=== PATIENT | male | born 1945 | race Caucasian/White ===

== ENCOUNTER → 2016-11-16 | Outpatient (CLI) | payer OTHER, MEDICARE ==
--- NOTE | 2016-11-16 18:34 | US ---
Venous Duplex Doppler Study of the Right Lower Extremity Clinical Indications: 71-year-old male with right leg swelling and pain over the posterior calf area . Rule out DVT. The right greater saphenous vein is surgically absent. Technique: A high-frequency transducer was used for imaging and Doppler study of the deep veins of th e right leg from the upper calf to the groin. Pulsed Doppler and color Doppler were utilized, along with various maneuvers, to assess flow in the deep veins. Cursory evaluation of the left common femor al vein was obtained for comparison purposes, and is normal. Comparison Study: Right lower extremity venous Doppler ultrasound, dated June 04, 2016. Findings: The deep veins of the right groin, thigh, knee, and upper calf are well-displayed, and are normally compressible. Doppler flow patterns are unremarkable. There is no evidence of deep venous thrombosis. The greater saphenous vein has been previously harvested. The lesser saphenous vein is c ompressible. The popliteal fossa is unremarkable. There is subcutaneous edema along the posterior lang f and ankle area. Impression: There is no sonographic evidence of deep or superficial vein thrombosis in the right leg. As requested, results were conveyed to Dr. Rodriguez, covering for Estephania Donnelly PA-C. A test result has been communicated to a licensed care provider and documented in [facility] 6:29:41 PM , 11/16/2016, [facility] Message ID [id number].
== END ==
LOC: FIMAGING 16:14
PROVIDERS: ATTEND Family Medicine
DX: M79.604 Pain in right leg (principal); M79.89 Other specified soft tissue disorders

== ENCOUNTER → 2017-10-15 | Outpatient (CLI) | payer OTHER, MEDICARE | LOC: FIMAGING 12:41 | PROVIDERS: ATTEND Family Medicine | DX: I65.22 Occlusion and stenosis of left carotid artery (principal) ==

== ENCOUNTER → 2017-11-20 | Outpatient (CLI) | payer OTHER, MEDICARE | LOC: FCPNEURO 20:00 | PROVIDERS: ATTEND Internal Medicine Sleep Medicine | DX: G47.33 Obstructive sleep apnea (adult) (pediatric) (principal); G47.36 Sleep related hypoventilation in conditions classified elsewhere; G47.37 Central sleep apnea in conditions classified elsewhere ==

== ENCOUNTER → 2018-07-08 | Outpatient (CLI) | payer OTHER ==
[~2018-07-08] MED LIST: IOPAMIDOL (ISOVUE-300) 150 ML BTL ONE
== END ==
LOC: FIMAGING 09:57
PROVIDERS: ATTEND Physician Assistant Medical
DX: N28.1 Cyst of kidney, acquired (principal); K80.20 Calculus of gallbladder without cholecystitis without obstruction; K57.30 Diverticulosis of large intestine without perforation or abscess without bleeding; I25.10 Atherosclerotic heart disease of native coronary artery without angina pectoris
CPT/HCPCS: 74178; Q9967

== ENCOUNTER → 2019-03-18 | Outpatient (CLI) | payer OTHER | LOC: GIMAGING 13:02 | PROVIDERS: ATTEND Family Medicine | DX: M25.559 Pain in unspecified hip (principal); M16.0 Bilateral primary osteoarthritis of hip | CPT/HCPCS: 73521-PO ==

== ENCOUNTER 2019-04-07 10:27 | Day surgery (SDC) | payer OTHER | END 2019-04-07 14:25 | disposition home or self-care (01) | LOC: FSGY 10:27 ==